=== PATIENT | female | born 1990 | race Caucasian/White ===

== ENCOUNTER 2019-07-31 00:18 | Emergency (ER) | payer SELFPAY ==
[2019-07-31 00:25] VITALS: BP 125/77; PULSE 96; RESP 16; TEMP 37.1; O2SAT 100; BMI 30.8
--- NOTE | 2019-07-31 00:33 | ED_ITS ---
HPI - Skin/Abscess/Foreign Bdy General: Chief complaint: Skin/Abscess/Foreign Body Stated complaint: Spreading rash Time Seen by Provider: 07/31/19 00:29 History of Present Illness: HPI narrative: Patient is a rash in the right buttocks been there presently couple days irritating and then she has scattered rash across her chest knees that she has had for years it comes and goes complaint: rash Onset (ago): day(s) Tetanus up to date: unsure Location: buttocks Severity: mild Severity scale (1-10): 2 Quality: burning Relieving factors: none Exacerbating factors: none Context: none Associated symptoms: Reports no associated symptoms; Deny chills, fever(s), nausea or vomiting Review of Systems Const: Denies: fever(s), chills or body aches Eyes: Denies: change in vision or blurry vision ENMT: Denies: throat pain or nasal congestion Card: Denies: chest pain or dyspnea on exertion Resp: Denies: dyspnea, productive cough or non-productive cough GI: Denies: abdominal pain, nausea or vomiting Musc: Denies: extremity pain Skin/Breast: Reports: rash (Buttock on right cheek and then also has a generalized rash across chest and arms knees) Neuro: Denies: headache(s) Psych: Denies: anxiety or depression Jak/Lymph: Denies: easy bruising PFSH ED PFSH: Social History Smoking and tobacco status: current every day smoker Female Reproductive History: Date of last menstrual period: 07/31/19 Physical Exam Const: COMMON NORMALS: no acute distress, average body habitus and patient oriented x3 HENMT: COMMON NORMALS: normocephalic HEAD & SCALP: normal to inspection and normocephalic FACE & SINUS: normal facial exam Eye: COMMON NORMALS: conjunctivae normal GENERAL EYE: appearance normal, both eyes and all related structures CONJUNCTIVA: Yes conjunctivae normal Neck/C-Spine: COMMON NORMALS: no JVD Chest: COMMONS NORMALS: normal inspection of the chest Resp: COMMON NORMALS: normal respiratory effort and clear to auscultation bilaterally AUSCULTATION: clear to auscultation bilaterally Cardio: COMMON NORMALS: no JVD, regular rate and regular rhythm RATE: regular rate RHYTHM: regular rhythm GI: COMMON NORMALS: Normal to inspection, nondistended, normoactive bowel sounds present Extremity: COMMON NORMALS: normal to inspection and full ROM Neuro: COMMON NORMALS: patient oriented x3 Psych: COMMON NORMALS: mental status grossly normal Skin: NARRATIVE SKIN EXAM: Macular rash that strongly resembles impetigo on the right butt cheek about quarter in size. And then has scattered macular type rash consistent with eczema type rashes across chest left knee and left arm Course Vital Signs: Vital signs: Vital Signs Temperature 98.7 F 07/31/19 00:25 Pulse Rate 96 07/31/19 00:25 Respiratory Rate 16 07/31/19 00:25 Blood Pressure 125/77 07/31/19 00:25 Pulse Oximetry 100 07/31/19 00:25 Discharge Plan Discharge Prescriptions: No Action Celexa 20 mg Tablet 20 mg PO DAILY RF: 0 Coding Level of Care Code ED Employee Relations Assistant for Vincent Bravo
[2019-07-31 00:59] VITALS: BP 124/72; PULSE 76; RESP 16; O2SAT 98
== END 2019-07-31 01:01 | disposition home or self-care (01) ==
LOC: ER 01:17
PROVIDERS: Emergency Provider Nurse Practitioner Family; PCP Family Medicine
DX: R21 Rash and other nonspecific skin eruption (principal); F17.210 Nicotine dependence, cigarettes, uncomplicated
CPT/HCPCS: 12345; 99281; 99282

== ENCOUNTER → 2019-11-05 15:08 | Outpatient (BNVA) | payer SELFPAY | PROVIDERS: PCP Family Medicine; Referring Provider Dermatology; Visit Provider Dermatology | DX: L40.4 Guttate psoriasis (principal) | CPT/HCPCS: 99203; 99204 ==

== ENCOUNTER 2020-03-25 02:19 | Inpatient (IN) | payer SELFPAY ==
[2020-03-25] VITALS (7 sets, daily range): BP systolic 90–135; BP diastolic 56–82; PULSE 75–98; RESP 18–24; TEMP 36.6–37.1; O2SAT 94–98; BMI 33.0
--- NOTE | 2020-03-25 02:22 | W.ED.AMS ---
HPI - Altered Mental Status General: Chief Complaint: Psychiatric Symptoms Stated Complaint: MHE Time Seen by Provider: 03/25/20 02:19 Source: patient and EMS Mode of arrival: EMS Limitations: altered mental status History of Present Illness: HPI narrative: 30-year-old female here with EMS and police. Patient admits to using marijuana along with methamphetamine. She is quite delirious. She is talking about seeing God and Lucifer and randomly saying things that make no sense whatsoever. She appears quite anxious and is agitated. Any history from her is very difficult. Review of Systems General: Reports: ROS unobtainable due to mental status [facility] ED PFSH: Family History Grandmother Diabetes Social History Smoking and tobacco status: current every day smoker Female Reproductive History: Date of last menstrual period: 07/31/19 Physical Exam Const: EXAM LIMITATIONS: altered mental status GENERAL APPEARANCE: anxious, combative and disheveled HENMT: COMMON NORMALS: normocephalic and atraumatic HEAD & SCALP: normocephalic and atraumatic Eye: COMMON NORMALS: Equal, round and reactive pupils present and EOMs intact bilaterally PUPIL: Yes Equal, round and reactive pupils present Neck/C-Spine: COMMON NORMALS: full ROM and supple Chest: COMMONS NORMALS: normal inspection of the chest and normal palpation of entire chest wall Resp: COMMON NORMALS: normal respiratory effort, No retractions, No use of accessory muscles and clear to auscultation bilaterally AUSCULTATION: clear to auscultation bilaterally Cardio: COMMON NORMALS: regular rhythm and No murmurs present (Cardio) RATE: tachycardic RHYTHM: regular rhythm GI: COMMON NORMALS: Normal to inspection, nondistended, normoactive bowel sounds present, Soft to palpation, non-tender and no masses PALPATION: Yes Soft to palpation Extremity: COMMON NORMALS: normal to inspection and full ROM Neuro: COMMON NORMALS: moves all extremities and no focal motor deficits Psych: APPEARANCE: Yes disheveled ATTITUDE: Yes uncooperative and Yes agitated MOOD & AFFECT: Yes anxious THOUGHT PROCESS: confused, Confabulating thought process present and Illogical thought process present Skin: COMMON NORMALS: no rashes or lesions noted and no wounds GENERAL SKIN EXAM: no rashes or lesions noted Course Vital Signs: Vital signs: Vital Signs Temperature 98.5 F 03/25/20 02:32 Pulse Rate 93 03/25/20 03:07 Respiratory Rate 18 03/25/20 03:07 Blood Pressure 101/59 03/25/20 03:07 Pulse Oximetry 96 03/25/20 03:07 MDM - Altered Mental Status MDM Narrative: Medical decision making narrative: Patient presents with acute psychosis and is medically cleared. Patient was given meds here to calm her agitation. She is now asleep. I spoke to psychiatrist and will admit for her psychosis likely due to methamphetamine. Lab Data: Labs: Lab Results 03/25/20 03/25/20 03/25/20 Range/Units 02:30 02:30 03:04 WBC 7.3 (4.0-10.0) 10^3/ uL RBC 4.79 (4.1-5.3) 10^6/u L Hgb 14.5 (11.5-15.3) g/dL Hct 49.8 H (37.0-47.0) % MCV 104.0 H (81-99) fL MCH 30.3 (28.0-34.0) pg MCHC 29.1 L (30.0-36.0) g/dL RDW 13.0 (12.1-15.1) % Plt Count 246 (130-400) 10^3/c mm MPV 11.7 H (7.4-10.4) fL Neut % (Auto) 51.1 % Lymph % (Auto) 36.4 % [place] % (Auto) 9.7 % Eos % (Auto) 0.8 % Baso % (Auto) 1.2 % Neut # (Auto) 3.72 (1.8-7.7) 10^3/u L Lymph # (Auto) 2.7 (0.8-4.8) 10^3/u L [place] # (Auto) 0.7 (0.2-0.9) 10^3/u L Eos # (Auto) 0.1 (0.0-0.8) 10^3/u L Baso # (Auto) 0.1 (0.0-0.1) 10^3/u L Nucleated RBC % (a uto) 0 % Nucleated RBCs # 0.0 /100WBC Sodium 142 (136-145) mmol/L Potassium 3.0 L (3.5-5.1) mmol/L Chloride 103 (98-107) mmol/L Carbon Dioxide 23 (22-29) mmol/L Anion Gap 19.0 (5-19) BUN 12 (6-20) mg/dL Creatinine 0.8 (0.5-0.9) mg/dL GFR Calculation 85.4 L (90-130) mL/min Glucose 183 H (65-115) mg/dL Calculated Osmolal ity 298 H (285-295) mOsm/k g Calcium 9.9 (8.5-10.5) mg/dL Total Bilirubin 0.4 (0.15-1.2) mg/dL AST 22 (0-32) U/L ALT 34 H (0-33) U/L Alkaline Phosphata se 91 (35-105) IU/L Total Protein 6.8 (6.6-8.7) g/dL Albumin 4.1 (3.5-5.2) g/dL Globulin 2.7 (1.3-4.6) g/dL HCG, Qual Negative (Negative) Salicylates < 0.3 L (3-10) mg/dL Acetaminophen < 5.0 L (10-30) ug/mL Ethyl Alcohol < 10 (0-10) mg/dL Discharge Plan Discharge Patient Disposition: Admitted As Inpatient Admit Provider: Marylu Jeff Clinical Impression: Acute psychosis, Drug-induced psychotic disorder Condition: Stable Coding Level of Care Code ED Home Teaching Grades 9 Thru 12 Teacher for Chg Fwd Exam Comprehensive
[2020-03-25] MEDS: sodium chloride 0.9% 1,000 ML 999 ML IV (02:37)
[2020-03-25] MEDS: LORazepam 2 mg/mL INJ 1 mL IVP ×2 (02:37→02:58)
[2020-03-25 02:46] LABS: Basophils # 0.1 10^3/uL (0.0-0.1); Basophils % 1.2 %; Eosinophils # 0.1 10^3/uL (0.0-0.8); Eosinophils % 0.8 %; Hematocrit 49.8 % (37.0-47.0); Hemoglobin 14.5 g/dL (11.5-15.3); Lymphocytes # 2.7 10^3/uL (0.8-4.8); Lymphocytes % 36.4 %; Mean Corpuscular HGB Conc 29.1 g/dL (30.0-36.0); Mean Corpuscular Hemoglobin 30.3 pg (28.0-34.0); Mean Platelet Volume 11.7 fL (7.4-10.4); Monocytes # 0.7 10^3/uL (0.2-0.9); Monocytes % 9.7 %; Neutrophils # 3.72 10^3/uL (1.8-7.7); Neutrophils % 51.1 %; Nucleated Red Blood Cells % 0 %; Platelet Count 246 10^3/cmm (130-400); Red Blood Count 4.79 10^6/uL (4.1-5.3); White Blood Count 7.3 10^3/uL (4.0-10.0)
--- NOTE | 2020-03-25 02:51 | PC.NURSE ---
Pt dressed in a gown at this time and personal clothing removed. Personal belongings in ED cabinet drawer 1.
[2020-03-25 02:57] LABS: Alanine Aminotransferase 34 U/L (0-33); Albumin Level 4.1 g/dL (3.5-5.2); Alkaline Phosphatase 91 IU/L (35-105); Aspartate Amino Transferase 22 U/L (0-32); Blood Urea Nitrogen 12 mg/dL (6-20); Calcium 9.9 mg/dL (8.5-10.5); Carbon Dioxide 23 mmol/L (22-29); Chloride 103 mmol/L (98-107); Globulin 2.7 g/dL (1.3-4.6); Glomerular Filtration Rate 85.4 mL/min (90-130); Glucose 183 mg/dL (65-115); Osmolality Calculated 298 mOsm/kg (285-295); Sodium 142 mmol/L (136-145); Total Bilirubin 0.4 mg/dL (0.15-1.2); Total Protein 6.8 g/dL (6.6-8.7)
[2020-03-25 03:27] LABS: Acetaminophen < 5.0 ug/mL (10-30); Alcohol Level < 10 mg/dL (0-10); Salicylate < 0.3 mg/dL (3-10)
[2020-03-25 03:37] LABS: HCG Qualitative Urine. Negative (Negative)
[2020-03-25 03:53] LABS: Amphetamines Screen Urine Positive (Negative); Barbiturates Screen Urine Negative (Negative); Benzodiazepines Screen Urine Negative (Negative); Cocaine Screen Urine Negative (Negative); Opiate Screen Urine Negative (Negative); PCP Screen Urine Negative (Negative); THC Screen Urine Positive (Negative)
[2020-03-25] MEDS: potassium chloride ER 20 mEq Tablet 40 MEQ PO ×2 (04:03→15:11)
--- NOTE | 2020-03-25 05:50 | PC.NURSE ---
PM ADmission Pt Heart/Lung Sounds are WNL. Pt is sedated on arrival. PT received 2mg IV Ativan twice before being admitted to the unit while in ED.Pt has generalized bruising all over her body and multiple forms of eczema/sores all over her. Pt has a laceration that is covered on her left forearm from punching through a plate glass window. 30-year-old female here with EMS and police. Patient admits to using marijuana along with methamphetamine. She is quite delirious. She is talking about seeing God and Lucifer and randomly saying things that make no sense whatsoever. She appears quite anxious and is agitated. Any history from her is very difficult. pt is resting in her room.
--- NOTE | 2020-03-25 06:45 | PC.NURSE ---
Laceration forearm Pt had a 3cm x 1cm x 0.5 cm laceration on her left forearm that is now clean and dressed. Pt came from ED without it being cleaned and dressed. Pt is sedated at this time.
--- NOTE | 2020-03-25 14:51 | PM.NHP ---
Providers/Chief Complaint Admitting Physician: Marylu Jeff DO Primary Care Provider: Farshad Retana MD Chief Complaint: MHE HPI NPU History of Present Illness Sharon Gavin is a 30 year old female with unclear past psychiatric history but treated with citalopram 40 mg daily presented to the emergency department by EMS and police with delirium and psychotic agitation. Patient was positive for cannabis and methamphetamine. Patient has been sleeping all day and will not participate in interview. Chart was reviewed with minimum information available with regards to past psychiatric treatment history. Review of Systems General: Reports: ROS unobtainable due to medical condition Meds NPU Home Medications Medication Instructions Recorded Confirmed Last Taken Type citalopram 40 mg PO DAILY 03/25/20 03/25/20 01/31/20 09:00 History Allergies Allergy/AdvReac Type Severity Reaction Status Date / Time No Known Allergies Allergy Verified 03/25/20 05:31 PFSH NPU PFSH: Family History Grandmother Diabetes Social History Smoking and tobacco status: current every day smoker Other Psychiatric History: Other Psychiatric History: Unable to obtain at this time Mental Status Exam MSE Comments: Patient sleeping, briefly arouses, rolls over facing away from the interviewer, briefly grunts but provides no information other than stating that she does not want to be bothered. Vitals/I&O/Wt Last Vital Signs Temp 98.0 F 03/25/20 06:00 Pulse 84 03/25/20 03:56 Resp 19 H 03/25/20 06:00 BP 100/68 03/25/20 06:00 Pulse Ox 97 03/25/20 03:56 Weight last 48 hrs Weight 104.326 kg Physical Exam Narrative: EXAM NARRATIVE: Emergency department physical examination was reviewed as part of this evaluation Data NPU : 03/25/20 02:30 03/25/20 02:30 A&P Assessment and plan (1) Acute psychosis: Status: Acute Additional A&P Information Patient presenting with acute psychotic symptoms on 96-hour hold. Positive UDS for cannabis and methamphetamine. Patient has history of antidepressant use with no additional information available with regards to psychiatric care. Patient not participating in interview at this time. INVOLUNTARY ADMIT to inpatient psychiatry Continue observation Involuntary Hold Information 96 Hour Hold: 96 Hour Involuntary Admission: Yes 96 Hour Hold Ending Date: 03/31/20 96 Hour Hold Ending Time: 03:24 Attestations NPU Medical Necessity Statement*: Psychiatric hospitalization is required for observation for any ongoing psychotic symptoms as well as potential harm to self. Anticipate hospital stay to exceed 2 midnights Time Spent in Patient Care: 16 - 35 minutes Coding Level of Care Code Acute Director Decision Support for Vincent Bravo Diagnoses Acute psychosis F23
--- NOTE | 2020-03-25 15:48 | PC.RESP ---
Smoking Cessation information sent to patient.
--- NOTE | 2020-03-25 21:26 | PC.NURSE ---
PT SEDATED IN ED PRIOR TO ADMIT TO NPU, COMBATIVE AT TIME OF ARRIVAL, EMS COVERED WOUND, IT WAS NOT ADDRESSED IN ED BY PHYSICIAN, NURSING STAFF REPLACED BANDAGE, NOTIFIED LUMBER TRIMMER, AND CONSULTED DR. LUNA FOR ORDERS TO OBTAIN CONSULT FROM A HOSPITALIST. WOUND IS TO THE FOREARM, SMALL AMOUNT OF SEROSANGENOUS DRAINAGE ON THE DRESSING AT THIS TIME. LACERATION MEASURES APPROX 3CM X 1CM X0.5 CM IN DEPTH LUMBER TRIMMER NOTIFIED OF PT CONDITION AT TIME OF ADMISSION. THIS EVENING PHYSICIAN CONSULT ORDERED, POSSIBLE IRRIGATION, POSSIBLE NEED FOR A TETNUS SHOT. HOSPITALIST DR. DESHPANDE NOTIFIED.
--- NOTE | 2020-03-25 21:33 | P.CONIM_ITS ---
Providers/Reason For Consult Consulting Physican/Specialty*: Hospitalist service Reason for Consult*: Forearm laceration Attending Physician: Marylu Jeff DO Primary Care Provider: Farshad Retana MD History of Present Illness History of Present Illness Sharon Gavin is a 30 year old female who was admitted to neuropsychiatric unit for polysubstance abuse. Hospitalist service is requested to evaluate left arm laceration. Patient is stating that she broke a window with her arm and sustained cuts from the glass when she was trying to wake her neighbor up 48 hours ago. She did not experience any bleeding or any purulent discharge in last 48 hours, no fever nausea vomiting lockjaw, she is able to carry out daily activities without any limitations, no muscle tremors rigidity, back pain arm pain or swelling noted. On admission she did not receive any tetanus shot, on arrival she was post 8-hour window for primary closure of the wound. Review of Systems Const: Denies: fever(s) or chills Eyes: Denies: change in vision ENMT: Denies: throat pain Card: Denies: chest pain Resp: Denies: dyspnea GI: Denies: abdominal pain : Denies: flank pain Musc: Denies: neck pain Skin/Breast: Reports: rash, erythema, skin pain, skin tenderness and new lesions Neuro: Denies: headache(s) Psych: Denies: anxiety Endo: Denies: polyuria Jak/Lymph: Denies: easy bruising All/Imm: Denies: urticaria Meds/Allergies Home Medications and Allergies Home Medications Medication Instructions Recorded Confirmed Last Taken Type citalopram 40 mg PO DAILY 03/25/20 03/25/20 01/31/20 09:00 History Allergies Allergy/AdvReac Type Severity Reaction Status Date / Time No Known Allergies Allergy Verified 03/25/20 05:31 Current Medications Current Medications Generic Name Dose Route Start Last Admin Trade Name Freq PRN Reason Stop Dose Admin Potassium Chloride 40 meq 03/25/20 15:00 03/25/20 15:11 Potassium Chloride Er 20 Meq Tablet PO 03/26/20 15:01 40 meq ONCE EMILI Administration PFSH Acute PFSH: Medical History (Updated 03/25/20 @ 21:34 by Hesham Winters MD) No pertinent past medical history Surgical History (Updated 03/25/20 @ 21:34 by Hesham Winters MD) No pertinent past surgical history Family History Grandmother Diabetes Social History (Updated 03/25/20 @ 21:34 by Hesham Winters MD) Smoking and tobacco status: current every day smoker Substance/Drug Use: current Substance/Drug use type: Marijuana and Methamphetamine Female Reproductive History: Date of last menstrual period: 07/31/19 Vitals/I&O/Wt Last Vital Signs Temp 98.8 F 03/25/20 20:22 Pulse 86 03/25/20 20:22 Resp 18 03/25/20 20:22 BP 128/80 03/25/20 20:22 Pulse Ox 98 03/25/20 20:22 Weight last 48 hrs Weight 104.326 kg Physical Exam Narrative: EXAM NARRATIVE: Young female who was sleeping on her stomach when I entered the room, female director of intelligence was accompanying me throughout my interaction S1, S2 sinus rhythm No signs of heart failure Abdomen soft central obesity No acute respite distress Patient was somnolent but verbally redirectable Left forearm revealed a minor laceration with half centimeter gap, base does not show any contamination, no active drainage No signs of cellulitis or abscess Multiple lacerations observed which seem to be in earlier stages of healing with good granulation tissue Lower extremity no edema gangrene ulcer No neurological deficit A&P Assessment and plan (1) Arm laceration: Left forearm multiple lacerations after glass injury No sign of cellulitis or abscess She is out of primary closure window hence I would not use any sutures, base of the wound looks clean, wound does not look contaminated at all no sign of cellulitis or abscess For minor laceration, steri strips were used to approximate the edges of laceration after cleaning the area with pyodine, would recommend using bacitracin for 3 to 5 days, avoid putting water around left forearm for next 24 hours, no need of p.o. antibiotics, she will not need any surgical follow-up Would give her tetanus shot Status: Acute (2) Hypokalemia: Repleted in the ER Status: Acute Consult Attestations Medical Necessity Statement: As per neuropsychiatrist Time Spent in Patient Care: 30mins Coding Level of Care Code Acute Telegraphic Typewriter Operator for Vincent Bravo Diagnoses Arm laceration S41.119A Hypokalemia E87.6
--- NOTE | 2020-03-26 00:43 | PC.NURSE ---
PM Assessment Pt denies SI/HI, Denies AH/VH, pt v/s are normal at this time. Pt saw Dr. Winters this evening to address her anterior forearm laceration, wound assessed, cleaned, and steri-strips applied, will monitor for any s/s of infection and monitor for pain control.
[2020-03-26 06:00] VITALS: BP 112/81; PULSE 67; RESP 17; TEMP 36.9; O2SAT 95
[2020-03-26 11:08] LABS: Estmated Average Glucose 97
[2020-03-26] MEDS: tetanus-diphtheria tox (adult) 0.5 mL SDV IM (11:32)
--- NOTE | 2020-03-26 11:33 | PC.NURSE ---
TETANUS INJECTION GIVEN ORDERED. 0.5 ML GIVEN IM IN RIGHT DELTOID LOT A125A EXP
[2020-03-26 11:59] LABS: Hepatitis A Antibody IgM Non-Reactive (Nonreactive); Hepatitis B Core IgM Non-Reactive (Nonreactive); Hepatitis B Surface Antigen Non-Reactive (Nonreactive); Hepatitis C Virus Antibody Non-Reactive (Nonreactive)
--- NOTE | 2020-03-26 12:37 | P.PN_ITS ---
Subjective Subjective: Interval history: Sharon reports she is doing okay. No specific drainage from the wrist. Medications: Reviewed: Yes Vitals/I&O/Wt Last Vital Signs Temp 98.5 F 03/26/20 06:00 Pulse 67 03/26/20 06:00 Resp 17 03/26/20 06:00 BP 112/81 03/26/20 06:00 Pulse Ox 95 03/26/20 06:00 Weight last 48 hrs Weight 104.326 kg Physical Exam Narrative: EXAM NARRATIVE: General exam no apparent distress Left forearm with multiple abrasions and lacerations. No evidence of infection currently. Data : 03/25/20 02:30 03/25/20 02:30 A&P Assessment and plan (1) Arm laceration: No evidence of infection Tetanus booster given Continue bacitracin We will sign off, call with any questions Status: Acute (2) Hypokalemia: Repleted in the ER Status: Acute Additional A&P Information Hyperglycemia on admission. Hemoglobin A1c normal. No evidence of diabetes. Elevated ALT. Hepatitis panel negative. Attestations Medical Necessity Statement*: As per primary Coding Level of Care Code Acute Night Order Selector for Vincent Fwwale Diagnoses Arm laceration S41.119A Hypokalemia E87.6
--- NOTE | 2020-03-26 13:55 | P.PN_ITS ---
Subjective NPU Subjective: Interval history: Sharon presented today reporting that she is feeling better. She endorses that she was out of my mind and her behavior that led up to the hospitalization. She identifies that addiction played a role. She also identifies being off of her medication played a role. She endorsed wanting to go home as soon as possible citing her children needing her. We discussed her being on a 96-hour hold. We agreed to restart her Celexa after discussion of the risks, and alternatives of medication and she understood and agreed to proceed with starting it at 20 mg which is less than her 40 mg she was taking. We also agreed that we would work with treatment team in the morning given that she is now able to rationally converse. She denies any recollection of the events other than knowing she was completely out of it. Mental Status Exam MSE Comments: This is a obese white female in hospital scrubs with adequate grooming and eye contact. No abnormal movements. Cooperative with exam in no acute distress. Speech was normal rate and volume. Mood described as feeling much better, affect congruent. Thought process organized. Thought content: Patient denied any suicidal or homicidal ideations, delusions reported, denies any auditory or visual hallucinations. Attention and concentration were intact and memory appeared reliable except for the events that brought her in here, but none were formally tested. She is alert and oriented x3. Insight and judgment are improving, impulse control is limited. Vitals/I&O/Wt Last Vital Signs Temp 98.4 F 03/26/20 21:20 Pulse 68 03/26/20 21:20 Resp 18 03/26/20 21:20 BP 107/68 03/26/20 21:20 Pulse Ox 93 03/26/20 21:20 Data NPU : 03/25/20 02:30 03/25/20 02:30 A&P Assessment and plan (1) Acute psychosis: Status: Acute (2) Drug-induced psychotic disorder: Status: Acute (3) Substance abuse: Status: Acute (4) Arm laceration: Status: Acute (5) Hypokalemia: Status: Acute (6) Depression: Status: Acute (7) Anxiety: Status: Acute Additional A&P Information Patient presenting with obvious resolution of her acute psychotic symptoms on 96-hour hold. Positive UDS for cannabis and methamphetamine. Patient has his tory of antidepressant use with no additional information available with regards to psychiatric care. Unlike yesterday she was able to fully participate in the exam and was open to restarting her medication and discussing aftercare plans. 1. Continue current medication. 2. Continue every 15 minute checks for safety. 3. Encourage individual, group and milieu therapies. 4. Encourage sober living treatment after discharge at the highest level of care to which she is willing to commit. Involuntary Hold Information 96 Hour Hold: 96 Hour Involuntary Admission: Yes 96 Hour Hold Ending Date: 03/31/20 96 Hour Hold Ending Time: 03:24 Attestations NPU Medical Necessity Statement*: Inpatient hospitalization is medically necessary and the clinically appropriate intervention at this time. We will monitor medication to maintain indicated. Likely length of stay 1 to 3 days. Coding Level of Care Code Acute Rn Cardiovascular Icu for Vincent Leavittd Diagnoses Acute psychosis F23 Drug-induced psychotic disorder F19.959 Substance abuse F19.10 Arm laceration S41.119A Hypokalemia E87.6 Depression F32.9 Anxiety F41.9
[2020-03-26 14:00] VITALS: BP 104/61; PULSE 78; RESP 18; TEMP 36.2; O2SAT 98
[2020-03-26] MEDS: citalopram 20 mg Tablet PO (18:24)
--- NOTE | 2020-03-26 19:36 | PM.NPTHER ---
NPU Therapy Progress Note Therapy Progress Note Date: 03/26/20 Time In: 18:00 Time Out: 18:15 Symptoms Reported: depression, anxiety Mood: frustration at wanting to see her children and be discharged. she is open to speaking some but doesn't open up much Progress Note: INFECTION CONTROL COORDINATOR engaged Sharon in conversation about what brought her to the NPU and what she is struggling with today. She presses INFECTION CONTROL COORDINATOR about when she can go home but responds to redirection. She relates well and is friendly; however, seems disinterested to discuss her emotions. She is tearful very briefly when speaking about her children and just wants to be with them. She does state she is interested in outpatient services but does not have many follow up questions. She does confirm [facility] location beside [facility] and states thats something i need to do . Intervention: INFECTION CONTROL COORDINATOR provided support, encouragement and used reflective listening skills. INFECTION CONTROL COORDINATOR does educate briefly about [facility] services and how to follow up after discharge. Sharon becomes disinterested and request to end our conversation to call her children. She remains friendly but aloof. Reported Goals Before Discharge: none
[2020-03-26] MEDS: bacitracin ointment 28 gm TOPICAL (20:40)
[2020-03-26 21:20] VITALS: BP 107/68; PULSE 68; RESP 18; TEMP 36.9; O2SAT 93
[2020-03-27] MEDS: hyDROXYzine 25 mg Capsule 50 MG PO (00:42)
[2020-03-27] MEDS: acetaminophen 325 mg Tablet 650 MG PO (00:44)
--- NOTE | 2020-03-27 02:38 | PC.NURSE ---
PM assessment Pt asleep at beginning of shift. V/s normal, Lung/Heart sounds normal. Pt denies all. Pt up for snack, calm, cooperative with staff. Pt dressing clean and intact. Pt denies pain. Will continue to monitor
[2020-03-27 06:00] VITALS: BP 120/79; PULSE 61; RESP 17; TEMP 36.7; O2SAT 95
[2020-03-27] MEDS: citalopram 20 mg Tablet PO (08:08)
[2020-03-27] MEDS: bacitracin ointment 28 gm TOPICAL (08:08)
--- NOTE | 2020-03-27 11:30 | P.DS_ITS ---
Diagnoses at Discharge Discharge Diagnosis (1) Acute psychosis: Status: Acute (2) Drug-induced psychotic disorder: Status: Acute (3) Substance abuse: Status: Acute (4) Arm laceration: Status: Acute (5) Hypokalemia: Status: Resolved (6) Depression: Status: Acute (7) Anxiety: Status: Acute Reason for Visit Reason for Visit: MHE Brief History: History of Present Illness Sharon Gavin is a 30 year old female with unclear past psychiatric history but treated with citalopram 40 mg daily presented to the emergency department by EMS and police with delirium and psychotic agitation. Patient was positive for cannabis and methamphetamine. Patient has been sleeping all day and will not participate in interview. Chart was reviewed with minimum information available with regards to past psychiatric treatment history. Review of Systems General: Reports: ROS unobtainable due to medical condition Meds NPU Home Medications Medication Instructions Recorded Confirmed Last Taken Type citalopram 40 mg PO DAILY 03/25/20 03/25/20 01/31/20 09:00 History Allergies Allergy/AdvReac Type Severity Reaction Status Date / Time No Known Allergies Allergy Verified 03/25/20 05:31 PFSH NPU PFSH: Family History Grandmother Diabetes Social History Smoking and tobacco status: current every day smoker Other Psychiatric History: Other Psychiatric History: Unable to obtain at this time Mental Status Exam MSE Comments: Patient sleeping, briefly arouses, rolls over facing away from the interviewer, briefly grunts but provides no information other than stating that she does not want to be bothered. Hospital Course Hospital Course Sharon presented to the emergency department with the following report: Chief Complaint: Psychiatric Symptoms Stated Complaint: MHE Time Seen by Provider: 03/25/20 02:19 Source: patient and EMS Mode of arrival: EMS Limitations: altered mental status History of Present Illness: HPI narrative: 30-year-old female here with EMS and police. Patient admits to using marijuana along with methamphetamine. She is quite delirious. She is talking about seeing God and Lucifer and randomly saying things that make no sense whatsoever. She appears quite anxious and is agitated. Any history from her is very difficult. He was noted to neuropsychiatric unit for definitive treatment of those issues. On the unit she slowly acclimated to the individual, group and milieu therapies provided. Her Celexa was restarted with a positive response. She was evaluated by hospitalist secondary to having cuts on her left arm which were observed and treated appropriately. Her psychosis appeared clearly drug-induced as it resolved without any clear intervention for it. She had a marked improvement wh ile on the unit. She is to contract for safety prior to discharge. She worked with the treatment team to get outpatient resources but secondary to employment she was not currently desirous of more intense sober living treatment, but there were services she is waitlisted on. During the hospitalization, patient had routine laboratory studies which were within normal limits except for few outliers. Additionally there was a general medical evaluation which was also within normal limits and revealed no new acute processes except for those addressed by the hospitalist. Discharge Summary: At the time of discharge, she was absent psychosis or lethality. Mood and anxiety were well managed. Patient endorsed a plan to avoid all drugs of abuse and follow-up with the aftercare recommendations of the treatment team. Patient was evaluated and deemed to be absent credible lethality, and had achieved the maximum benefit from an inpatient hospitalization, so was discharged. Involuntary Hold Information 96 Hour Hold: 96 Hour Involuntary Admission: Yes 96 Hour Hold Ending Date: 03/31/20 96 Hour Hold Ending Time: 03:24 Mental Status Exam MSE Comments: This is a obese white female in hospital scrubs with adequate grooming and eye contact. No abnormal movements. Cooperative with exam in no acute distress. Speech was normal rate and volume. Mood described as pretty good, affect congruent. Thought process organized. Thought content: Patient denied any suicidal or homicidal ideations, delusions reported, denies any auditory or visual hallucinations. Attention and concentration were intact and memory appeared reliable except for the events that brought her in here, but none were formally tested. She is alert and oriented x3. Insight and judgment are improving, impulse control is limited, but improving. Discharge Data Vitals: Last Vital Signs Temp 98.0 F 03/27/20 11:49 Pulse 61 03/27/20 11:49 Resp 17 03/27/20 11:49 BP 120/79 03/27/20 11:49 Pulse Ox 95 03/27/20 11:49 Discharge Plan Discharge Patient Disposition: Home Condition: Stable Prescriptions: New citalopram 20 mg Tablet 20 mg PO DAILY 30 Days Qty: 30 RF: 1 Discontinued citalopram 40 mg Tablet 40 mg PO DAILY RF: 0 Discharge Orders: Discharge Order (Routine); Ordered 03/27/20 Ordered By: Praneeth Wylie Referrals: [facility] [Other] (Another option for your arm lacerations if you feel like you need follow up. No appointment needed, just walk in.) [facility] [Outside] (Intake paperwork was completed while you were in the hospital. Once this has been processed you will be contacted about an appointment.) [facility] [Outside] (Resource for inpatient or outpatient substance abuse treatment.) Farshad Retana MD [Primary Care Provider] - (Call and schedule follow up if you notice any pain, redness, or discharge from arm laceration.) Discharge Diet: Regular Discharge Activity: Resume usual activity Patient Instructions: Citalopram (By mouth), Generalized Anxiety Disorder (DC) Discharge Attestations NPU Time Spent in Discharge Care*: less than 30 min Specific Discharge Activities: Specific discharge activities: educating patient, discussing with case finishing machine adjuster/social workers/dc planners, documenting/other paperwork and evaluating patient/reviewing data Coding Level of Care Code Acute Radiology Director for g Fwd Diagnoses Acute psychosis F23 Drug-induced psychotic disorder F19.959 Substance abuse F19.10 Arm laceration S41.119A Hypokalemia E87.6 Depression F32.9 Anxiety F41.9
[2020-03-27 11:49] VITALS: BP 120/79; PULSE 61; RESP 17; TEMP 36.7; O2SAT 95
== END 2020-03-27 12:30 | disposition home or self-care (01) | DRG 897 ==
LOC: ER 03:25 → NP 03:40
PROVIDERS: Admitting Provider Psychiatry & Neurology Psychiatry; Emergency Provider Emergency Medicine; PCP Family Medicine; Visit Provider Psychiatry & Neurology Psychiatry
DX: F15.159 Other stimulant abuse with stimulant-induced psychotic disorder, unspecified (principal); F12.159 Cannabis abuse with psychotic disorder, unspecified; S41.112A Laceration without foreign body of left upper arm, initial encounter; X58.XXXA Exposure to other specified factors, initial encounter; E87.6 Hypokalemia; F32.9 Major depressive disorder, single episode, unspecified; F41.9 Anxiety disorder, unspecified
CPT/HCPCS: 12345; 36415; 80053; 80074; 80306; 80307; 81025; 83036; 85025; 90471; 90714; 99284; J2060; J7030

== ENCOUNTER 2023-07-20 19:25 | Emergency (ER) | payer MEDICAID, SELFPAY ==
[2023-07-20 19:41] VITALS: BP 122/74; PULSE 97; RESP 14; TEMP 36.4; O2SAT 97
--- NOTE | 2023-07-20 20:12 | CTR_ITS ---
PROCEDURE INFORMATION: Exam: CT Abdomen And Pelvis Without Contrast Exam date and time: 07/20/2023 9:06 PM Age: 33 years old Clinical indication: Abdominal pain; Flank; Right; Additional info: R flank pain TECHNIQUE: Imaging protocol: Computed tomography of the abdomen and pelvis without contrast. Radiation optimization: All CT scans at this facility use at least one of these dose optimization techniques: automated exposure control; mA and/or kV adjustment per patient size (includes targeted exams where dose is matched to clinical indication); or iterative reconstruction. COMPARISON: None RADIATION DOSE METRICS: Total DLP (mGy-cm): 975.4 FINDINGS: Lungs: The lung bases are clear. A few linear scars in the middle lobe and lingula. Liver: The liver is slightly fatty but not enlarged. Gallbladder and bile ducts: Normal. No calcified stones. No ductal dilation. Pancreas: Normal. No ductal dilation. Spleen: Normal. No splenomegaly. Adrenal glands: Normal. No mass. Kidneys and ureters: Mild right hydronephrosis is due to a 6 x 5 mm calculus in the distal ureter located within 1 cm of the urinary bladder. No additional stones in either kidney. Stomach and bowel: Unremarkable. No obstruction. No mucosal thickening. Appendix: No evidence of appendicitis. Intraperitoneal space: Unremarkable. No free air. No significant fluid collection. Vasculature: Unremarkable. No abdominal aortic aneurysm. Lymph nodes: Unremarkable. No enlarged lymph nodes. Urinary bladder: Unremarkable as visualized. Reproductive: Unremarkable as visualized. Bones/joints: L5-S1 chronic degenerative disc disease. Soft tissues: Unremarkable. CT/CT kidney stone [id number] IMPRESSION: Mild right obstructive uropathy due to a 6 mm distal ureteral calculus.
--- NOTE | 2023-07-20 20:13 | ED_ITS ---
HPI - Abdominal Pain 2 General: Chief Complaint: Abdominal Pain Stated Complaint: Lower right abd pain,N/V Time Seen by Provider: 07/20/23 20:02 Source: patient Mode of arrival: ambulatory Limitations: no limitations History of Present Illness: 33-year-old female who states she had a sudden onset of right-sided flank pain that began roughly 3 hours ago states pain severe in nature sharp rates it a 9 out of 10 she had nausea and vomiting with this as well. She denies any dysuria denies any fevers no history of kidney stones. Associated Symptoms: Reports nausea and vomiting; Denies chills, diarrhea, dysuria and fever(s) Review of Systems 2 Const: Denies: fever(s), chills, body aches or change in appetite ENMT: Denies: throat pain or dental pain Card: Denies: chest pain Resp: Denies: dyspnea GI: Reports: abdominal pain, nausea and vomiting; Denies: diarrhea : Reports: flank pain; Denies: dysuria Musc: Denies: neck pain or back pain Skin/Breast: Denies: rash Neuro: Denies: headache(s) PFSH ED 2 PFSH: Medical History (Updated 07/20/23 @ 21:44 by Zehra Griffin MD) Psychiatric care No pertinent past medical history Surgical History No pertinent past surgical history Family History Grandmother Diabetes Social History Smoking and tobacco/nicotine status: current every day tobacco/nicotine user Substance/Drug Use: current Physical Exam 2 Const: COMMON NORMALS: no acute distress, patient oriented x3 and healthy appearing HENMT: COMMON NORMALS: normocephalic and atraumatic HEAD & SCALP: n ormocephalic and atraumatic Neck/C-Spine: COMMON NORMALS: full ROM and supple Chest: COMMONS NORMALS: normal inspection of the chest Resp: COMMON NORMALS: normal respiratory effort Cardio: COMMON NORMALS: regular rate, regular rhythm and No murmurs present (Cardio) RATE: regular rate RHYTHM: regular rhythm GI: COMMON NORMALS: Normal to inspection, nondistended, normoactive bowel sounds present, Soft to palpation, non-tender and no masses PALPATION: Yes Soft to palpation Extremity: COMMON NORMALS: normal to inspection and full ROM Neuro: COMMON NORMALS: patient oriented x3, moves all extremities and no focal motor deficits Psych: COMMON NORMALS: mental status grossly normal, Normal thought process present and cooperative THOUGHT PROCESS: Normal thought process present Skin: COMMON NORMALS: no rashes or lesions noted and no wounds GENERAL SKIN EXAM: no rashes or lesions noted Course 2 Vital Signs: Vital signs: Vital Signs Temperature 97.5 F L 07/20/23 19:41 Pulse Rate 64 07/20/23 21:00 Respiratory Rate 16 07/20/23 20:34 Blood Pressure 120/79 07/20/23 20:46 Pulse Oximetry 95 07/20/23 21:00 Oxygen Delivery Me thod Room Air 07/20/23 19:41 MDM - Abdominal Pain Medical Decision Making Patient presents with right flank pain she does have a kidney stone likely causing this pain she has no abdominal tenderness no signs of kidney infection patient stable for discharge she is follow-up with PCP return if worsening she understands agrees to plan. Will also get her follow-up with neurology. Medical Records I reviewed the patient's medical records. Lab Data I reviewed the patient's lab results. 07/20/23 20:20 07/20/23 20:20 Labs/Radiology: Radiology Impressions Abdomen/Pelvis CT 07/20/23 20:12 IMPRESSION: Mild right obstructive uropathy due to a 6 mm distal ureteral calculus. Laboratory Results WBC 11.22 10^3/uL (3.29-11.43) 07/20/23 20:20 RBC 4.85 10^6/uL (3.85-5.65) 07/20/23 20:20 Hgb 13.80 g/dL (11.27-16.99) 07/20/23 20:20 Hct 42.1 % (36-47) 07/20/23 20:20 MCV 86.8 fl (85-98) 07/20/23 20:20 MCH 28.5 pg (27-33) 07/20/23 20:20 MCHC 32.8 g/dL (30-55) 07/20/23 20:20 RDW 13.0 % (12.1-15.1) 07/20/23 20:20 Plt Count 287 10^3/cmm (157-399) 07/20/23 20:20 MPV 12.3 fL (7.4-10.4) H 07/20/23 20:20 Neut % (Auto) 74.4 % 07/20/23 20:20 Lymph % (Auto) 17.4 % 07/20/23 20:20 [place] % (Auto) 6.0 % 07/20/23 20:20 Eos % (Auto) 1.2 % 07/20/23 20:20 Baso % (Auto) 0.6 % 07/20/23 20:20 Neut # (Auto) 8.34 10^3/uL (1.8-7.7) H 07/20/23 20:20 Lymph # (Auto) 2.0 10^3/uL (0.8-4.8) 07/20/23 20:20 [place] # (Auto) 0.7 10^3/uL (0.2-0.9) 07/20/23 20:20 Eos # (Auto) 0.1 10^3/uL (0.0-0.8) 07/20/23 20:20 Baso # (Auto) 0.1 10^3/uL (0.0-0.1) 07/20/23 20:20 Nucleated RBC % (auto) 0 % 07/20/23 20:20 Nucleated RBCs # 0.0 /100WBC 07/20/23 20:20 Sodium 139 mmol/L (136-145) 07/20/23 20:20 Potassium 4.2 mmol/L (3.5-5.1) 07/20/23 20:20 Chloride 101 mmol/L (98-107) 07/20/23 20:20 Carbon Dioxide 26 mmol/L (22-29) 07/20/23 20:20 Anion Gap 16.2 (5-19) 07/20/23 20:20 BUN 12 mg/dL (6-20) 07/20/23 20:20 Creatinine 0.9 mg/dL (0.5-0.9) 07/20/23 20:20 GFR Calculation 73.0 mL/min (90-130) L 07/20/23 20:20 Glucose 104 mg/dL (65-115) 07/20/23 20:20 Calculated Osmolality 288 mOsm/kg (285-295) 07/20/23 20:20 Calcium 9.1 mg/dL (8.5-10.5) 07/20/23 20:20 Total Bilirubin 0.3 mg/dL (0.15-1.2) 07/20/23 20:20 AST 16 U/L (0-32) 07/20/23 20:20 ALT 24 U/L (0-33) 07/20/23 20:20 Alkaline Phosphatase 68 U/L (35-105) 07/20/23 20:20 Total Protein 7.9 g/dL (6.6-8.7) 07/20/23 20:20 Albumin 4.6 g/dL (3.5-5.2) 07/20/23 20:20 Globulin 3.3 g/dL (1.3-4.6) 07/20/23 20:20 Lipase 23 U/L (13-60) 07/20/23 20:20 HCG, Qual Negative (Negative) 07/20/23 20:20 Urine Color Yellow (Yellow) 07/20/23 20:09 Urine Appearance Slightly cloudy (CLEAR) 07/20/23 20:09 Urine pH 5 (5-7) 07/20/23 20:09 Ur Specific [place] 1.030 (1.005-1.030) 07/20/23 20:09 Urine Protein Trace (Negative) 07/20/23 20:09 Urine Glucose (UA) Norm (Normal) 07/20/23 20:09 Urine Ketones 1+ (Negative) H 07/20/23 20:09 Urine Blood 3+ (Negative) H 07/20/23 20:09 Urine Nitrate Negative (Negative) 07/20/23 20:09 Urine Bilirubin Neg (Negative) 07/20/23 20:09 Urine Urobilinogen Neg mg/dL (Negative) 07/20/23 20:09 Ur Leukocyte Esterase Negative (Negative) 07/20/23 20:09 Urine RBC 5-10 /hpf (0-2) H 07/20/23 20:09 Urine WBC None /hpf (0-5) 07/20/23 20:09 Ur Squamous Epith Cells 0-4 /hpf (0-5) H 07/20/23 20:09 Calcium Oxalate Crystal 15-25 /hpf H 07/20/23 20:09 Amorphous Sediment Not Reportable 07/20/23 20:09 Urine Bacteria Trace /hpf (NONE) 07/20/23 20:09 All radiology interpretation(s) finalized by discharge Discharge Plan Discharge Patient Disposition: Home Clinical Impression: Kidney stone Condition: Stable Prescriptions: New hydrocodone-acetaminophen 5-325 mg tablet 1 tab PO Q6H PRN (Reason: pain) Qty: 14 0RF ondansetron 4 mg tablet,disintegrating 4 mg PO Q6H PRN (Reason: nausea and vomiting) Qty: 14 0RF No Action sulfamethoxazole-trimethoprim [Bactrim DS] 800-160 mg tablet 1 tab PO BID 10 Days Qty: 20 0RF citalopram 20 mg Tablet 20 mg PO DAILY 30 Days Qty: 30 1RF Discharge Orders: Discharge ED (Routine); Ordered 07/20/23 Ordered By: Zehra Griffin Referrals: Farshad Retana MD [Primary Care Provider] - Discharge Diet: Advance as tolerated Discharge Activity: Resume usual activity Patient Instructions: Kidney Stones (ED), Opioid Safety Coding Level of Care Code ED Construction Producer for Vincent Bravo
[2023-07-20] MEDS: sodium chloride 0.9% 1,000 ML 999 ML IV (20:33)
[2023-07-20 20:34] VITALS: RESP 16
[2023-07-20] MEDS: ondansetron 2 mg/ML SDV 2 mL 4 MG IVP (20:34)
[2023-07-20] MEDS: HYDROmorphone 1 mg/mL INJ 1 mL IVP (20:34)
[2023-07-20 20:41] LABS: Basophils # 0.1 10^3/uL (0.0-0.1); Basophils % 0.6 %; Eosinophils # 0.1 10^3/uL (0.0-0.8); Eosinophils % 1.2 %; Hematocrit 42.1 % (36-47); Lymphocytes % 17.4 %; Mean Corpuscular HGB Conc 32.8 g/dL (30-55); Mean Corpuscular Hemoglobin 28.5 pg (27-33); Mean Corpuscular Volume 86.8 fl (85-98); Mean Platelet Volume 12.3 fL (7.4-10.4); Monocytes # 0.7 10^3/uL (0.2-0.9); Neutrophils # 8.34 10^3/uL (1.8-7.7); Neutrophils % 74.4 %; Nucleated Red Blood Cells % 0 %; Platelet Count 287 10^3/cmm (157-399); Red Blood Count 4.85 10^6/uL (3.85-5.65); White Blood Count 11.22 10^3/uL (3.29-11.43)
[2023-07-20 20:46] VITALS: BP 120/79
[2023-07-20 21:00] VITALS: PULSE 64; O2SAT 95
[2023-07-20 21:00] LABS: Alanine Aminotransferase 24 U/L (0-33); Albumin Level 4.6 g/dL (3.5-5.2); Alkaline Phosphatase 68 U/L (35-105); Anion Gap 16.2 (5-19); Aspartate Amino Transferase 16 U/L (0-32); Blood Urea Nitrogen 12 mg/dL (6-20); Calcium 9.1 mg/dL (8.5-10.5); Carbon Dioxide 26 mmol/L (22-29); Chloride 101 mmol/L (98-107); Globulin 3.3 g/dL (1.3-4.6); Glucose 104 mg/dL (65-115); Lipase 23 U/L (13-60); Osmolality Calculated 288 mOsm/kg (285-295); Potassium 4.2 mmol/L (3.5-5.1); Sodium 139 mmol/L (136-145); Total Bilirubin 0.3 mg/dL (0.15-1.2); Total Protein 7.9 g/dL (6.6-8.7)
[2023-07-20 21:02] LABS: HCG, Serum Qual Negative (Negative)
[2023-07-20 21:05] LABS: Add Urine Culture? No; Add Urine Microscopic? YES; Bacteria Urine TRACE /hpf; Bilirubin Urine Neg (Negative); Blood Urine 3+ (Negative); Calcium Oxalate Crystals Urine 15-25 /hpf; Glucose Urine UA Norm (Normal); Ketones Urine 1+ (Negative); Leukocyte Esterase Urine Negative (Negative); Nitrate Urine Negative (Negative); Protein Urine Trace (Negative); Squamous Epithelial Cell Urine 0-4 /hpf (0-5); Urine Appearance Slightly Cloudy (CLEAR); Urine Color Yellow (Yellow); Urobilinogen Urine Neg (Negative); pH Urine 5 (5-7)
[2023-07-20] MEDS: HYDROcodone-acetaminophen 5-325 mg Tablet 2 TAB PO (22:22)
[2023-07-20] MEDS: ketorolac 30 mg/mL INJ 15 MG IVP (22:23)
[2023-07-20 22:32] VITALS: BP 120/79; PULSE 71; RESP 16; O2SAT 97
--- NOTE | 2023-07-27 09:17 | DCPLANNER ---
faxed urology referral to [facility] in [place]
== END 2023-07-20 22:35 | disposition home or self-care (01) ==
PROVIDERS: Emergency Provider Emergency Medicine; PCP Family Medicine
DX: N20.0 Calculus of kidney (principal); Z72.0 Tobacco use
CPT/HCPCS: 36415; 74176; 80053; 81001; 83690; 84703; 85025; 96361; 96374; 96375; 99285; J1170; J1885; J2405; J7030

== ENCOUNTER 2023-09-24 03:18 | Emergency (ER) | payer SELFPAY ==
[2023-09-24 03:34] VITALS: BP 118/75; PULSE 66; RESP 16; TEMP 36.6; O2SAT 93; BMI 33.0
[2023-09-24 04:00] VITALS: BP 106/74; PULSE 63; O2SAT 93
[2023-09-24 04:30] VITALS: BP 108/71; PULSE 61; O2SAT 93
[2023-09-24 04:39] LABS: Add Urine Culture? Yes; Bacteria Urine 1+ /hpf; Bilirubin Urine Neg (Negative); Blood Urine 3+ (Negative); Calcium Oxalate Crystals Urine 0-4 /hpf; Glucose Urine UA Norm (Normal); Hyaline Casts Urine 0-4 /lpf; Ketones Urine Negative (Negative); Leukocyte Esterase Urine Trace (Negative); Mucus Urine 2+ /hpf; Nitrate Urine Negative (Negative); Protein Urine 1+ (Negative); RBC Urine 25-40 /hpf (0-2); Specific Gravity, Urine 1.025 (1.005-1.030); Urine Appearance Cloudy (CLEAR); Urine Color Yellow (Yellow); Urobilinogen Urine 1 mg/dL (Negative); pH Urine 5 (5-7)
[2023-09-24 04:40] LABS: HCG Qualitative Urine. Negative (Negative)
[2023-09-24] MEDS: ketorolac 30 mg/mL INJ IVP (04:45)
[2023-09-24] MEDS: ondansetron 2 mg/ML SDV 2 mL 4 MG IVP (04:45)
[2023-09-24 04:48] LABS: Basophils % 0.5 %; Eosinophils # 0.2 10^3/uL (0.0-0.8); Eosinophils % 2.4 %; Hematocrit 38.4 % (36-47); Lymphocytes # 2.1 10^3/uL (0.8-4.8); Mean Corpuscular HGB Conc 32.8 g/dL (30-55); Mean Corpuscular Hemoglobin 28.4 pg (27-33); Mean Corpuscular Volume 86.5 fl (85-98); Monocytes # 0.6 10^3/uL (0.2-0.9); Monocytes % 7.2 %; Neutrophils # 5.49 10^3/uL (1.8-7.7); Neutrophils % 64.5 %; Nucleated Red Blood Cells % 0 %; Platelet Count 231 10^3/cmm (157-399); Red Blood Count 4.44 10^6/uL (3.85-5.65); Red Cell Distribution Width 12.9 % (12.1-15.1); White Blood Count 8.49 10^3/uL (3.29-11.43)
[2023-09-24 05:00] VITALS: BP 95/68; PULSE 59; O2SAT 94
[2023-09-24 05:04] LABS: Lactic Sepsis W/Reflex 1.5 mmol/L (0.5-2.2)
--- NOTE | 2023-09-24 05:15 | CTR_ITS ---
PROCEDURE INFORMATION: Exam: CT Abdomen And Pelvis Without Contrast Exam date and time: 09/24/2023 5:30 AM Age: 33 years old Clinical indication: Abdominal pain; Right; Patient HX: C/O RT flank pain; Additional info: R flank pain TECHNIQUE: Imaging protocol: Computed tomography of the abdomen and pelvis without contrast. Radiation optimization: All CT scans at this facility use at least one of these dose optimization techniques: automated exposure control; mA and/or kV adjustment per patient size (includes targeted exams where dose is matched to clinical indication); or iterative reconstruction. COMPARISON: CT kidney stone [id number] 07/20/2023 9:06 PM RADIATION DOSE METRICS: Total DLP (mGy-cm): 903.73 FINDINGS: Liver: Normal. No mass. Gallbladder and biliary ducts: Normal. No calcified stones. No ductal dilation. Pancreas: Normal. No ductal dilation. Spleen: Normal. No splenomegaly. Adrenal glands: Normal. No mass. Kidneys and ureters: Right ureterovesical junction stone measures 6 mm x 3 mm which has progressed slightly distally compared to the prior imaging and has rotated 90 degrees. The right collecting system is slightly dilated but is reduced in caliber from the comparison. Stomach and bowel: Unremarkable. No obstruction. No mucosal thickening. Appendix: No evidence of appendicitis. Intraperitoneal space: Unremarkable. No free air. No significant fluid collection. Vasculature: Unremarkable. No abdominal aortic aneurysm. Lymph nodes: Unremarkable. No enlarged lymph nodes. Urinary bladder: Unremarkable as visualized. Reproductive: Unremarkable as visualized. Bones/joints: Unremarkable. No acute fracture. Soft tissues: Unremarkable. CT/CT kidney stone [id number] IMPRESSION: Right ureterovesical junction stone.
[2023-09-24 05:28] LABS: Alanine Aminotransferase 20 U/L (0-33); Albumin Level 4.1 g/dL (3.5-5.2); Alkaline Phosphatase 66 U/L (35-105); Anion Gap 15.8 (5-19); Aspartate Amino Transferase 15 U/L (0-32); Blood Urea Nitrogen 12 mg/dL (6-20); Calcium 8.9 mg/dL (8.5-10.5); Carbon Dioxide 24 mmol/L (22-29); Chloride 103 mmol/L (98-107); Creatine Phosphokinase 163 U/L (26-192); Creatinine Clr Calc Pharmacy 133.2333; Globulin 2.7 g/dL (1.3-4.6); Glomerular Filtration Rate 83.7 mL/min (90-130); Glucose 111 mg/dL (65-115); Lipase 15 U/L (13-60); Magnesium 1.8 mg/dL (1.7-2.3); NT Pro B Type Natriuretic Pept 40 pg/mL (0-125); Osmolality Calculated 288 mOsm/kg (285-295); Phosphorus 3.8 mg/dL (2.5-4.5); Potassium 3.8 mmol/L (3.5-5.1); Sodium 139 mmol/L (136-145); Total Bilirubin 0.2 mg/dL (0.15-1.2); Total Protein 6.8 g/dL (6.6-8.7)
--- NOTE | 2023-09-24 05:50 | ED_ITS ---
HPI - Abdominal Pain 2 General: Chief Complaint: Abdominal Pain Stated Complaint: Possible Kidney Stone History of Present Illness: 33-year-old female with right flank pain starting prior to arrival. She has had multiple episodes of vomiting on the way here due to the pain. Pain seemed to improve at home transiently, but then came back. No fever. Her urine has looked dark. She is not . PFSH ED 2 PFSH: Medical History (Updated 09/24/23 @ 06:00 by Dwayne Park DO) Major depressive disorder, recurrent, in remission Generalized anxiety disorder Alcohol dependence, in remission Other stimulant dependence, in remission Psychiatric care No pertinent past medical history Surgical History No pertinent past surgical history Family History Grandmother Diabetes Social History Smoking and tobacco/nicotine status: current every day tobacco/nicotine user Substance/Drug Use: current Physical Exam 2 Const: COMMON NORMALS: no acute distress GENERAL APPEARANCE: cooperative; not ill appearing and not frail appearing HENMT: COMMON NORMALS: normocephalic, atraumatic and Normal external nose present HEAD & SCALP: normocephalic and atraumatic FACE & SINUS: normal facial exam and face symmetric NOSE: Normal external nose present Eye: COMMON NORMALS: Equal, round and reactive pupils present and EOMs intact bilaterally PUPIL: Yes Equal, round and reactive pupils present Neck/C-Spine: GENERAL: Yes trachea midline Chest: CHEST: Yes Symmetrical chest wall rise Resp: COMMON NORMALS: normal respiratory effort, No retractions, No use of accessory muscles and clear to auscultation bilaterally AUSCULTATION: clear to auscultation bilaterally Cardio: COMMON NORMALS: regular rate and regular rhythm RATE: regular rate RHYTHM: regular rhythm GI: COMMON NORMALS: Normal to inspection, nondistended, normoactive bowel sounds present PALPATION: Yes Tenderness to palpation present (GI) Details: RLQ : BLADDER/KIDNEY EXAM: Yes CVA tenderness on the right Back/Pelvis: GENERAL BACK: Yes CVA tenderness Extremity: COMMON NORMALS: no pedal edema Neuro: JOMAR COMA SCALE: document GCS findings Jomar coma scale eye opening: Spontaneous Jomar coma scale verbal response: Orientated Jomar coma scale motor response: Obey commands Jomar coma scale total score: 15 S ENSORY EXAM: Yes extremities (intact) Psych: COMMON NORMALS: speech normal SPEECH: Yes normal speech Skin: COMMON NORMALS: no rashes or lesions noted GENERAL SKIN EXAM: no rashes or lesions noted Course 2 Vital Signs: Vital signs: Vital Signs Temperature 97.9 F 09/24/23 03:34 Pulse Rate 59 L 09/24/23 05:00 Respiratory Rate 16 09/24/23 03:34 Blood Pressure 95/68 09/24/23 05:00 Pulse Oximetry 94 09/24/23 05:00 Oxygen Delivery Me thod Room Air 09/24/23 03:34 MDM - Abdominal Pain Medical Decision Making Vitals are stable. CBC is normal. BMP is normal. No elevation in liver enzymes. Urinalysis shows hematuria without overt UTI. CT scan shows 7 x 5 mm kidney stone at the UVJ on the right. Associated hydronephrosis is present. Given position of the stone very distally, she will be allowed home to try to pass on its own even given its size. Return precautions given. Lab Data 09/24/23 04:32 09/24/23 04:32 Labs/Radiology: Radiology Impressions Abdomen/Pelvis CT 09/24/23 05:15 IMPRESSION: Right ureterovesical junction stone. Laboratory Results WBC 8.49 10^3/uL (3.29-11.43) 09/24/23 04:32 RBC 4.44 10^6/uL (3.85-5.65) 09/24/23 04:32 Hgb 12.60 g/dL (11.27-16.99) 09/24/23 04:32 Hct 38.4 % (36-47) 09/24/23 04:32 MCV 86.5 fl (85-98) 09/24/23 04:32 MCH 28.4 pg (27-33) 09/24/23 04:32 MCHC 32.8 g/dL (30-55) 09/24/23 04:32 RDW 12.9 % (12.1-15.1) 09/24/23 04:32 Plt Count 231 10^3/cmm (157-399) 09/24/23 04:32 MPV 12.0 fL (7.4-10.4) H 09/24/23 04:32 Neut % (Auto) 64.5 % 09/24/23 04:32 Lymph % (Auto) 25.0 % 09/24/23 04:32 [place] % (Auto) 7.2 % 09/24/23 04:32 Eos % (Auto) 2.4 % 09/24/23 04:32 Baso % (Auto) 0.5 % 09/24/23 04:32 Neut # (Auto) 5.49 10^3/uL (1.8-7.7) 09/24/23 04:32 Lymph # (Auto) 2.1 10^3/uL (0.8-4.8) 09/24/23 04:32 [place] # (Auto) 0.6 10^3/uL (0.2-0.9) 09/24/23 04:32 Eos # (Auto) 0.2 10^3/uL (0.0-0.8) 09/24/23 04:32 Baso # (Auto) 0.0 10^3/uL (0.0-0.1) 09/24/23 04:32 Nucleated RBC % (auto) 0 % 09/24/23 04:32 Nucleated RBCs # 0.0 /100WBC 09/24/23 04:32 Sodium 139 mmol/L (136-145) 09/24/23 04:32 Potassium 3.8 mmol/L (3.5-5.1) 09/24/23 04:32 Chloride 103 mmol/L (98-107) 09/24/23 04:32 Carbon Dioxide 24 mmol/L (22-29) 09/24/23 04:32 Anion Gap 15.8 (5-19) 09/24/23 04:32 BUN 12 mg/dL (6-20) 09/24/23 04:32 Creatinine 0.8 mg/dL (0.5-0.9) 09/24/23 04:32 GFR Calculation 83.7 mL/min (90-130) L 09/24/23 04:32 Glucose 111 mg/dL (65-115) 09/24/23 04:32 Calculated Osmolality 288 mOsm/kg (285-295) 09/24/23 04:32 Lactic Acid 1.5 mmol/L (0.5-2.2) 09/24/23 04:32 Calcium 8.9 mg/dL (8.5-10.5) 09/24/23 04:32 Phosphorus 3.8 mg/dL (2.5-4.5) 09/24/23 04:32 Magnesium 1.8 mg/dL (1.7-2.3) 09/24/23 04:32 Total Bilirubin 0.2 mg/dL (0.15-1.2) 09/24/23 04:32 AST 15 U/L (0-32) 09/24/23 04:32 ALT 20 U/L (0-33) 09/24/23 04:32 Alkaline Phosphatase 66 U/L (35-105) 09/24/23 04:32 Creatine Kinase 163 U/L (26-192) 09/24/23 04:32 NT-Pro-B Natriuret Pep 40 pg/mL (0-125) 09/24/23 04:32 Total Protein 6.8 g/dL (6.6-8.7) 09/24/23 04:32 Albumin 4.1 g/dL (3.5-5.2) 09/24/23 04:32 Globulin 2.7 g/dL (1.3-4.6) 09/24/23 04:32 Lipase 15 U/L (13-60) 09/24/23 04:32 HCG, Qual Negative (Negative) 09/24/23 03:37 Urine Color Yellow (Yellow) 09/24/23 03:37 Urine Appearance Cloudy (CLEAR) A 09/24/23 03:37 Urine pH 5 (5-7) 09/24/23 03:37 Ur Specific [place] 1.025 (1.005-1.030) 09/24/23 03:37 Urine Protein 1+ (Negative) H 09/24/23 03:37 Urine Glucose (UA) Norm (Normal) 09/24/23 03:37 Urine Ketones Negative (Negative) 09/24/23 03:37 Urine Blood 3+ (Negative) H 09/24/23 03:37 Urine Nitrate Negative (Negative) 09/24/23 03:37 Urine Bilirubin Neg (Negative) 09/24/23 03:37 Urine Urobilinogen 1 mg/dL (Negative) H 09/24/23 03:37 Ur Leukocyte Esterase Trace (Negative) H 09/24/23 03:37 Urine RBC 25-40 /hpf (0-2) H 09/24/23 03:37 Urine WBC 5-10 /hpf (0-5) H 09/24/23 03:37 Ur Squamous Epith Cells 3-5 /hpf (0-5) 09/24/23 03:37 Calcium Oxalate Crystal 0-4 /hpf H 09/24/23 03:37 Amorphous Sediment Not Reportable 09/24/23 03:37 Urine Bacteria 1+ /hpf (NONE) H 09/24/23 03:37 Hyaline Casts 0-4 /lpf H 09/24/23 03:37 Urine Mucus 2+ /hpf 09/24/23 03:37 All radiology interpretation(s) finalized by discharge Discharge Plan Discharge Patient Disposition: Home Clinical Impression: Ureterolithiasis Condition: Stable Prescriptions: New Percocet 7.5-325 mg tablet 1 tab PO Q6H PRN (Reason: pain) Qty: 10 0RF Flomax 0.4 mg capsule 0.4 mg PO DAILY Qty: 7 0RF Continued ondansetron 4 mg tablet,disintegrating 4 mg PO Q6H PRN (Reason: nausea and vomiting) Qty: 14 0RF Discontinued hydrocodone-acetaminophen 5-325 mg tablet 1 tab PO Q6H PRN (Reason: pain) Qty: 14 0RF No Action citalopram 20 mg tablet 40 mg PO DAILY Qty: 30 2RF clonidine HCl 0.3 mg tablet 0.3 mg PO DAILY Qty: 30 2RF hydroxyzine pamoate 100 mg capsule 100 mg PO DAILY Qty: 30 2RF Discharge Orders: Discharge ED (Routine); Ordered 09/24/23 Ordered By: Dwayne Park Referrals: Farshad Retana MD [Primary Care Provider] - 1-3 days Patient Instructions: Kidney Stones (ED), Opioid Safety, Pain Management Activity Restrictions/Additional Instructions: Medication as directed. Return for fever greater than 100 ?F, vomiting liquids or medications, inability to control your pain with above medications, other concerning symptoms. See your doctor next week. Repeat urine test should be performed to ensure blood in the urine resolves. Strain your urine so that you know the stone is passed. Case management has been asked to make an appointment for a urologist. Coding Level of Care Code ED [facility] for Vincent Bravo
== END 2023-09-24 06:53 | disposition home or self-care (01) ==
PROVIDERS: Emergency Provider Emergency Medicine; PCP Family Medicine
DX: N20.1 Calculus of ureter (principal); Z72.0 Tobacco use
CPT/HCPCS: 74176; 80053; 81001; 81025; 82550; 83605; 83690; 83735; 83880; 84100; 85025; 87086; 96374; 96375; 99285; J1885; J2405